=== PATIENT | female | born 2000 | race Caucasian/White ===

== ENCOUNTER → 2021-05-30 | Outpatient (CLI) | payer OTHER ==
[2021-05-30 17:43] LABS: HEMOGLOBIN A1c 4.8 %
== END ==
LOC: M PLALAB 15:45
PROVIDERS: ATTEND Obstetrics & Gynecology
DX: N93.9 Abnormal uterine and vaginal bleeding, unspecified (principal); N96 Recurrent pregnancy loss

== ENCOUNTER → 2021-06-02 | Outpatient (CLI) | payer OTHER | LOC: M PLALAB 09:25 | PROVIDERS: ATTEND Obstetrics & Gynecology | DX: N96 Recurrent pregnancy loss (principal) ==

== ENCOUNTER → 2021-07-17 | Outpatient (CLI) | payer OTHER ==
[2021-07-17 17:43] LABS: HEMATOCRIT 38.4 % (36.0-47.0); HEMOGLOBIN 13.1 g/dl (12.0-15.5); MEAN CORPUSCULAR HEMOGLOBIN 28.9 pg (27.0-33.0); MEAN CORPUSCULAR HGB CONC 34.1 g/dl (32.0-36.5); MEAN CORPUSCULAR VOLUME 84.6 fl (80.0-96.0); PLATELET COUNT, AUTOMATED 254 10^3/uL (150-450); RED BLOOD COUNT 4.54 10^6/uL (4.00-5.40); WHITE BLOOD COUNT 10.4 10^3/uL (4.0-10.0)
[2021-07-17 18:58] LABS: HEPATITIS C VIRUS ABY INDEX 0.2 INDEX (<0.8); HIV 1&2 SCREEN CENTAUR NEGATIVE (NEGATIVE)
== END ==
LOC: M PLALAB 14:23
PROVIDERS: ATTEND Obstetrics & Gynecology
DX: Z34.80 Encounter for supervision of other normal pregnancy, unspecified trimester (principal); Z36.89 Encounter for other specified antenatal screening

== ENCOUNTER → 2021-09-25 | Outpatient (CLI) | payer OTHER | LOC: M WHC 09:48 | PROVIDERS: ATTEND Obstetrics & Gynecology | DX: O32.1XX0 Maternal care for breech presentation, not applicable or unspecified (principal); Z3A.20 20 weeks gestation of pregnancy ==

== ENCOUNTER → 2021-11-10 | Outpatient (CLI) | payer OTHER | LOC: M WHC 08:56 | PROVIDERS: ATTEND Specialist | DX: Z36.2 Encounter for other antenatal screening follow-up (principal); Z3A.27 27 weeks gestation of pregnancy ==

== ENCOUNTER → 2021-11-10 | Outpatient (CLI) | payer OTHER ==
[2021-11-10 15:21] LABS: HEMATOCRIT 35.4 % (36.0-47.0); HEMOGLOBIN 11.6 g/dl (12.0-15.5); MEAN CORPUSCULAR HEMOGLOBIN 28.1 pg (27.0-33.0); MEAN CORPUSCULAR HGB CONC 32.8 g/dl (32.0-36.5); MEAN CORPUSCULAR VOLUME 85.7 fl (80.0-96.0); PLATELET COUNT, AUTOMATED 238 10^3/uL (150-450); RED BLOOD COUNT 4.13 10^6/uL (4.00-5.40); WHITE BLOOD COUNT 8.4 10^3/uL (4.0-10.0)
== END ==
LOC: M PLALAB 09:55
PROVIDERS: ATTEND Specialist
DX: Z34.82 Encounter for supervision of other normal pregnancy, second trimester (principal); Z3A.27 27 weeks gestation of pregnancy; Z36.2 Encounter for other antenatal screening follow-up

== ENCOUNTER → 2022-01-12 | Outpatient (REF) | payer OTHER ==
[~2022-01-12] MED LIST: MULTTAB20 PO
[2022-01-12 13:56] LABS: APPEARANCE, URINE MANUAL HAZY (CLEAR); BILIRUBIN, URINE MANUAL NEGATIVE (NEGATIVE); COLOR, URINE MANUAL YELLOW (YELLOW); GLUCOSE, URINE (UA) MANUAL NEGATIVE (NEGATIVE); KETONE, URINE MANUAL NEGATIVE (NEGATIVE); NITRITE, URINE MANUAL NEGATIVE (NEGATIVE); PH,URINE MAN 6.5 UNITS (5.0 - 7.0); PROTEIN, URINE MANUAL NEGATIVE (NEGATIVE); UROBILINOGEN, URINE MANUAL NORMAL (NORMAL)
[2022-01-12 13:57] LABS: BLOOD URINE MANUAL NEGATIVE (NEGATIVE); LEUKOCYTE ESTERASE, URINE MAN TRACE (NEGATIVE)
[2022-01-12 14:21] LABS: AMORPHOUS SEDIMENT, URINE MOD AMOUNT (NEGATIVE); BACTERIA, URINE NONE SEEN; HYALINE CAST, URINE NONE SEEN /lpf (0-1); MUCUS, URINE SMALL AMOUNT (NEGATIVE); RBC, URINE NONE SEEN /hpf (0-3); SQUAMOUS EPITHELIAL CELL URINE SMALL AMOUNT /hpf (SMALL AMT); WBC, URINE 0-1 /hpf (0-3)
== END ==
LOC: M PLALAB 11:39
PROVIDERS: ATTEND Obstetrics & Gynecology
DX: O23.43 Unspecified infection of urinary tract in pregnancy, third trimester (principal); Z36.89 Encounter for other specified antenatal screening; Z3A.36 36 weeks gestation of pregnancy
CPT/HCPCS: 81000; 87081; 87086; G0463

== ENCOUNTER 2022-01-14 18:15 | Outpatient (CLI) | payer OTHER ==
[~2022-01-14] VITALS: Ht 162.6 cm; Wt 111.4 kg
[2022-01-14] MEDS ORDERED: MULTTAB20 PO (18:35)
[2022-01-14 18:39] VITALS: BP 100/56
[2022-01-14] MEDS ORDERED: HOME MED LIST COMPLETE! XX SCH (18:40)
[2022-01-14] MEDS ORDERED: ONDANSETRON 4MG ORAL DISINTEGRATING TAB PO PRN (19:25)
[2022-01-14 19:46] LABS: APPEARANCE, URINE MANUAL CLEAR (CLEAR); BILIRUBIN, URINE MANUAL NEGATIVE (NEGATIVE); BLOOD URINE MANUAL NEGATIVE (NEGATIVE); COLOR, URINE MANUAL YELLOW (YELLOW); GLUCOSE, URINE (UA) MANUAL NEGATIVE (NEGATIVE); KETONE, URINE MANUAL NEGATIVE (NEGATIVE); NITRITE, URINE MANUAL NEGATIVE (NEGATIVE); PROTEIN, URINE MANUAL NEGATIVE (NEGATIVE); UROBILINOGEN, URINE MANUAL NORMAL (NORMAL)
[2022-01-14 19:47] LABS: LEUKOCYTE ESTERASE, URINE MAN NEGATIVE (NEGATIVE)
== END 2022-01-14 20:30 | disposition home or self-care (01) ==
LOC: M LDO 18:15
PROVIDERS: ATTEND Advanced Practice Midwife
DX: O26.893 Other specified pregnancy related conditions, third trimester (principal); M54.50 Low back pain, unspecified; R10.2 Pelvic and perineal pain; R11.0 Nausea; Z88.0 Allergy status to penicillin; Z3A.36 36 weeks gestation of pregnancy
CPT/HCPCS: 59025; 81002; G0463

== ENCOUNTER 2022-02-01 15:33 | Inpatient (IN) | payer OTHER ==
[~2022-02-01] VITALS: Ht 160 cm; Wt 113.4 kg
[2022-02-01] MEDS ORDERED: HOME MED LIST COMPLETE! XX SCH (16:10)
[2022-02-01 16:24] VITALS: BP 87/35
[2022-02-01 16:26] VITALS: BP 101/54
[2022-02-01 17:08] LABS: HEMATOCRIT 33.2 % (36.0-47.0); MEAN CORPUSCULAR HEMOGLOBIN 27.9 pg (27.0-33.0); MEAN CORPUSCULAR HGB CONC 33.1 g/dl (32.0-36.5); MEAN CORPUSCULAR VOLUME 84.3 fl (80.0-96.0); PLATELET COUNT, AUTOMATED 247 10^3/uL (150-450); RED BLOOD COUNT 3.94 10^6/uL (4.00-5.40); WHITE BLOOD COUNT 8.2 10^3/uL (4.0-10.0)
[2022-02-01] MEDS ORDERED: LACTATED RINGER'S 1000 ML IV PRN (17:30)
[2022-02-01] MEDS ORDERED: CARBOPROST TROMETHAMINE 250 MCG/ML AMP IM PRN (17:30)
[2022-02-01] MEDS ORDERED: METHYLERGONOVINE MALEATE 0.2 MG/ML VIAL (J2210) IM PRN (17:30)
[2022-02-01] MEDS ORDERED: miSOPROStol 50MCG 1/2 TABLET PO ONE ×2 (17:30→23:00)
[2022-02-01] MEDS ORDERED: TRANEXAMIC ACID INJection 1,000 MG in NS 100 ML IV PRN (17:30)
[2022-02-01] MEDS ORDERED: OXYTOCIN DRIP 30 UNITS in IV 1 EA IV PRN ×4 (17:30)
[2022-02-01] MEDS ORDERED: LR 1,000 ML IV SCH (17:30)
[2022-02-01 17:43] VITALS: BP 126/58
[2022-02-01 18:43] VITALS: BP 137/70
[2022-02-01 22:12] VITALS: BP 120/61
[2022-02-02] VITALS (46 sets, daily range): BP systolic 70–198; BP diastolic 50–98
[2022-02-02] MEDS ORDERED: miSOPROStol 50MCG 1/2 TABLET PO ONE ×2 (05:00→09:35)
[2022-02-02] MEDS ORDERED: ACETAMINOPHEN 500 MG TAB PO ONE (06:00)
[2022-02-02 14:43] LABS: HEMATOCRIT 34.2 % (36.0-47.0); HEMOGLOBIN 11.4 g/dl (12.0-15.5); MEAN CORPUSCULAR HEMOGLOBIN 27.7 pg (27.0-33.0); MEAN CORPUSCULAR HGB CONC 33.3 g/dl (32.0-36.5); MEAN CORPUSCULAR VOLUME 83.2 fl (80.0-96.0); PLATELET COUNT, AUTOMATED 234 10^3/uL (150-450); RED BLOOD COUNT 4.11 10^6/uL (4.00-5.40); WHITE BLOOD COUNT 8.6 10^3/uL (4.0-10.0)
[2022-02-02] MEDS ORDERED: OXYTOCIN DRIP 30 UNITS in IV 1 EA IV SCH (14:45)
[2022-02-02 15:33] LABS: ALT/SGPT 19 U/L (12-78); BILIRUBIN,TOTAL 0.3 MG/DL (0.2-1.0); CREATININE FOR GFR 0.54 MG/DL (0.55-1.30); GLOMERULAR FILTRATION RATE > 60.0 (>60); LDH LACTATE DEHYDROGENASE 147 U/L (84-246); URIC ACID 3.6 MG/DL (2.6-6.0)
[2022-02-02 16:01] LABS: TOTAL PROTEIN,RANDOM URINE 18.3 MG/DL (0.0-12.0)
[2022-02-02] MEDS ORDERED: FENTANYL/ROPIVACAINE/NACL BAG 100 ML EPIDURAL SCH (16:05)
[2022-02-02] MEDS ORDERED: EPIDURAL/PCA KEYS XX PRN ×2 (16:05→16:15)
[2022-02-02] MEDS ORDERED: diphenhydrAMINE 50MG/ML VIAL (J1200) IV PRN (16:15)
[2022-02-02] MEDS ORDERED: ONDANSETRON 4MG 2ML VIAL IV PRN (16:15)
[2022-02-02] MEDS ORDERED: LR 500 ML IV PRN (16:15)
[2022-02-02] MEDS ORDERED: NALOXONE INJ 0.4MG/1ML VIAL (J2310 PER 1MG) IV PRN (16:15)
[2022-02-02] MEDS ORDERED: ePHEDrine SULFATE 25 MG/5 ML(5MG/ML) SYRINGE IVP PRN (16:15)
[2022-02-02] MEDS: FENTANYL/ROPIVACAINE/NACL BAG 100 ML EPIDURAL SCH (16:47)
[2022-02-03] VITALS (19 sets, daily range): BP systolic 106–134; BP diastolic 47–73
[2022-02-03] MEDS: FENTANYL/ROPIVACAINE/NACL BAG 100 ML EPIDURAL SCH (00:44)
[2022-02-03] MEDS ORDERED: BICITRA 30ML SOLN UDC As Ordered ONE (07:40)
[2022-02-03] MEDS ORDERED: CHLOROPROCAINE PRES. FREE 3% 20ML VIAL As Ordered ONE (07:45)
[2022-02-03] MEDS ORDERED: LIDOCAINE 2% W/EPINEPHRINE 20ML VIAL **PRES FREE As Ordered ONE (07:52)
[2022-02-03] MEDS ORDERED: ONDANSETRON 4MG 2ML VIAL As Ordered ONE (07:54)
[2022-02-03] MEDS ORDERED: KETOROLAC 60MG 2ML VIAL As Ordered ONE (07:54)
[2022-02-03] MEDS ORDERED: ceFAZolin SOD 2 GM in IV 1 EA IV STA (07:55)
[2022-02-03] MEDS ORDERED: MIDAZOLAM INJ 2MG/2ML VIAL (J2250 PER 1MG) As Ordered ONE (07:55)
[2022-02-03] MEDS ORDERED: fentaNYL 100 MCG/2 ML INJECTION As Ordered ONE (07:56)
[2022-02-03] MEDS ORDERED: OXYTOCIN 30 UNITS IN 0.9% NaCl 500ML IV BAG (J2590) As Ordered ONE ×3 (07:58→09:16)
[2022-02-03] MEDS ORDERED: PHENYLephrine 500MCG 5ML (100MCG/ML) SYRINGE As Ordered ONE (07:58)
[2022-02-03] MEDS ORDERED: MORPHINE PRES-FREE INJ 10 MG/10 ML VIAL As Ordered ONE (07:59)
[2022-02-03] MEDS ORDERED: ceFAZolin SOD 2 GM in IV 1 EA IV ONE (08:05)
[2022-02-03] MEDS ORDERED: BICITRA 30ML SOLN UDC PO ONE (08:05)
[2022-02-03] MEDS ORDERED: ceFAZolin 2 GM/D5W 50 ML IV BAG (J0690 PER 500MG) As Ordered ONE (08:06)
[2022-02-03 08:09] LABS: CORD GAS ABE V -8.5; CORD GAS HCO3 V 20.3 MEQ/L; CORD GAS O2 SAT V 36.8 %; CORD GAS PCO2 V 54.7 mmHg; CORD GAS PH V 7.188 UNITS; CORD GAS PO2 V 19.4 mmHg; CORD GAS SBC V 16.4 MEQ/L
[2022-02-03 08:12] LABS: CORD GAS HCO3 A 22.1 MEQ/L; CORD GAS O2 SAT A 36.3 %; CORD GAS PCO2 A 71.5 mmHg; CORD GAS PH A 7.108 UNITS; CORD GAS PO2 A 21.6 mmHg; CORD GAS SBC A 16.1 MEQ/L; CORD GAS TCO2 A 24.3 MEQ/L
[2022-02-03] MEDS ORDERED: **NOTE PATIENT COMMENT** MISC XX SCH (08:20)
[2022-02-03] MEDS ORDERED: fentaNYL 100 MCG/2 ML INJECTION IV PRN (08:20)
[2022-02-03] MEDS ORDERED: ONDANSETRON 4MG 2ML VIAL IV PRN ×2 (08:20→09:05)
[2022-02-03] MEDS: SLF 3 ML SYR IV SCH ×2 (08:20→16:18)
[2022-02-03] MEDS ORDERED: HYDROMORPHONE HCL 0.5 MG/ 0.5 ML SYRINGE (J1170 PER 1) IV PRN (08:20)
[2022-02-03] MEDS ORDERED: oxyCODONE 5MG TAB PO PRN (08:20)
[2022-02-03] MEDS ORDERED: diphenhydrAMINE 50MG/ML VIAL (J1200) IV PRN (08:20)
[2022-02-03] MEDS ORDERED: NALOXONE INJ 0.4MG/1ML VIAL (J2310 PER 1MG) IV PRN ×2 (08:20)
[2022-02-03] MEDS ORDERED: METOCLOPRAMIDE INJ 10MG/2ML VIAL (J2765 PER 1) IV PRN (08:20)
[2022-02-03] MEDS ORDERED: MEPERIDINE INJ 25 MG/ML VIAL (J2175) IV PRN (08:20)
[2022-02-03] MEDS: PRENATAL VITAMINS CHEWABLE TABLET PO SCH (09:00)
[2022-02-03] MEDS ORDERED: PERCOCET 5MG/325MG TAB PO PRN (09:05)
[2022-02-03] MEDS: LR 1,000 ML IV SCH ×2 (09:05→16:18)
[2022-02-03] MEDS ORDERED: OXYTOCIN DRIP 30 UNITS in IV 1 EA IV SCH (09:05)
[2022-02-03] MEDS ORDERED: SIMETHICONE 80MG CHEW TAB PO PRN (09:05)
[2022-02-03] MEDS ORDERED: METHYLERGONOVINE MALEATE 0.2 MG TAB PO PRN (09:05)
[2022-02-03] MEDS ORDERED: MOM 30ML SUSPENSION UDC PO PRN (09:05)
[2022-02-03] MEDS ORDERED: RHOGAM 300 MCG (1500 IU) INJ (J2790) IM SCH (09:05)
[2022-02-03] MEDS ORDERED: oxyCODONE 5MG TAB As Ordered ONE (09:24)
[2022-02-03] MEDS: KETOROLAC 30 MG/ML 1ML VIAL IV SCH ×2 (14:02→20:40)
[2022-02-03] MEDS: ceFAZolin SOD 2 GM in IV 1 EA IV SCH (16:17)
[2022-02-03] MEDS: DOCUSATE SODIUM 100MG CAPSULE PO SCH (20:40)
[2022-02-04] MEDS: LR 1,000 ML IV SCH (01:14)
[2022-02-04] MEDS: KETOROLAC 30 MG/ML 1ML VIAL IV SCH (01:14)
[2022-02-04] MEDS: ceFAZolin SOD 2 GM in IV 1 EA IV SCH ×2 (01:14→08:16)
[2022-02-04] MEDS: SLF 3 ML SYR IV SCH (01:14)
[2022-02-04 02:00] VITALS: BP 123/61
[2022-02-04 06:00] VITALS: BP 115/57
[2022-02-04 07:19] LABS: HEMATOCRIT 25.4 % (36.0-47.0); MEAN CORPUSCULAR HEMOGLOBIN 27.9 pg (27.0-33.0); MEAN CORPUSCULAR HGB CONC 32.3 g/dl (32.0-36.5); MEAN CORPUSCULAR VOLUME 86.4 fl (80.0-96.0); PLATELET COUNT, AUTOMATED 166 10^3/uL (150-450); RED BLOOD COUNT 2.94 10^6/uL (4.00-5.40); WHITE BLOOD COUNT 9.9 10^3/uL (4.0-10.0)
[2022-02-04 07:27] LABS: HEMOGLOBIN 8.2 g/dl (12.0-15.5)
[2022-02-04] MEDS: PRENATAL VITAMINS CHEWABLE TABLET PO SCH (08:16)
[2022-02-04] MEDS: PERCOCET 5MG/325MG TAB PO PRN ×3 (08:16→19:24)
[2022-02-04] MEDS: DOCUSATE SODIUM 100MG CAPSULE PO SCH ×2 (08:16→21:00)
[2022-02-04] MEDS: IBUPROFEN 800 MG TAB PO SCH ×2 (09:23→18:38)
[2022-02-04 09:33] VITALS: BP 109/57
[2022-02-04 14:06] VITALS: BP 104/52
[2022-02-04 17:47] VITALS: BP 117/59
[2022-02-04 22:00] VITALS: BP 114/58
[2022-02-05 02:00] VITALS: BP 97/51
[2022-02-05] MEDS: IBUPROFEN 800 MG TAB PO SCH ×2 (02:04→10:51)
[2022-02-05 06:00] VITALS: BP 113/57
[2022-02-05] MEDS: DOCUSATE SODIUM 100MG CAPSULE PO SCH (08:51)
[2022-02-05] MEDS: PRENATAL VITAMINS CHEWABLE TABLET PO SCH (08:51)
[2022-02-05] MEDS ORDERED: MEASLES,MUMPS,RUBELLA VACCINE INJ (MMR-II) (90707) SC.IMMUN ONE (09:00)
[2022-02-05] MEDS ORDERED: COLA100C5 PO (09:56)
[2022-02-05] MEDS ORDERED: PERCOCET PO (09:56)
[2022-02-05] MEDS ORDERED: IBUP80TA PO (09:56)
== END 2022-02-05 10:57 | disposition home or self-care (01) | DRG 773 ==
LOC: M LDI 15:33 → M OBS 02-03 10:28
PROVIDERS: ADMIT Obstetrics & Gynecology; ATTEND Obstetrics & Gynecology
PROC: 3E0P7GC Introduction of Other Therapeutic Substance into Female Reproductive, Via Natural or Artificial Opening (ICD-10-PCS; 2022-02-01)
PROC: 10907ZC Drainage of Amniotic Fluid, Therapeutic from Products of Conception, Via Natural or Artificial Opening (ICD-10-PCS; 2022-02-03)
PROC: 10D00Z1 Extraction of Products of Conception, Low, Open Approach (ICD-10-PCS; principal; 2022-02-03 07:48)
DX: O69.0XX0 Labor and delivery complicated by prolapse of cord, not applicable or unspecified (principal); Z88.0 Allergy status to penicillin; Z3A.39 39 weeks gestation of pregnancy; O76 Abnormality in fetal heart rate and rhythm complicating labor and delivery; Z37.0 Single live birth

== ENCOUNTER → 2022-05-07 | Outpatient (CLI) | payer OTHER ==
[~2022-05-07] MED LIST changes: +COLA100C5 PO; +IBUP80TA PO; +PERCOCET PO
== END ==
LOC: M LABSMTC 09:23
PROVIDERS: ATTEND Anesthesiology
DX: Z01.812 Encounter for preprocedural laboratory examination (principal)

== ENCOUNTER 2022-05-12 06:56 | Day surgery (SDC) | payer OTHER ==
[~2022-05-12] VITALS: Ht 160 cm; Wt 107.7 kg
[2022-05-12] MEDS ORDERED: LR 1,000 ML IV SCH ×2 (07:10→10:05)
[2022-05-12 07:50] LABS: HEMATOCRIT 38.5 % (36.0-47.0); HEMOGLOBIN 12.8 g/dl (12.0-15.5); MEAN CORPUSCULAR HEMOGLOBIN 25.7 pg (27.0-33.0); MEAN CORPUSCULAR HGB CONC 33.2 g/dl (32.0-36.5); MEAN CORPUSCULAR VOLUME 77.2 fl (80.0-96.0); PLATELET COUNT, AUTOMATED 323 10^3/uL (150-450); RED BLOOD COUNT 4.99 10^6/uL (4.00-5.40); WHITE BLOOD COUNT 11.6 10^3/uL (4.0-10.0)
[2022-05-12] MEDS ORDERED: propofoL 200 MG/20 ML VIAL As Ordered ONE (08:41)
[2022-05-12] MEDS ORDERED: LIDOCAINE 2% 100MG/5ML SDV (FOR ANES.) As Ordered ONE (08:41)
[2022-05-12] MEDS ORDERED: ROCURONIUM BROMIDE 50MG/5ML VIAL As Ordered ONE ×2 (08:41→09:24)
[2022-05-12] MEDS ORDERED: MIDAZOLAM INJ 2MG/2ML VIAL As Ordered ONE (08:42)
[2022-05-12] MEDS ORDERED: fentaNYL 100 MCG/2 ML INJECTION As Ordered ONE (08:42)
[2022-05-12] MEDS ORDERED: BUPIVACAINE HCL 0.25% 30ML VIAL As Ordered ONE (08:47)
[2022-05-12] MEDS ORDERED: ACETAMINOPHEN 1000MG 100ML IV BAG As Ordered ONE (09:19)
[2022-05-12] MEDS ORDERED: HYDROmorphone HCL 2MG/ML 1ML VIAL As Ordered ONE (09:32)
[2022-05-12] MEDS ORDERED: KETOROLAC 60MG 2ML VIAL As Ordered ONE (09:32)
[2022-05-12] MEDS ORDERED: METOCLOPRAMIDE INJ 10MG/2ML VIAL As Ordered ONE (09:32)
[2022-05-12] MEDS ORDERED: SUGAMMADEX SODIUM 500 MG/5 ML VIAL (BRIDION) As Ordered ONE (09:32)
[2022-05-12] MEDS ORDERED: ONDANSETRON 4MG 2ML VIAL As Ordered ONE (09:32)
[2022-05-12] MEDS ORDERED: HYDROMORPHONE HCL 0.5 MG/ 0.5 ML SYRINGE IV PRN (10:05)
[2022-05-12] MEDS ORDERED: fentaNYL 100 MCG/2 ML INJECTION IV PRN (10:05)
[2022-05-12] MEDS ORDERED: oxyCODONE 5MG TAB PO PRN (10:05)
[2022-05-12] MEDS ORDERED: ONDANSETRON 4MG 2ML VIAL IV PRN (10:05)
[2022-05-12] MEDS ORDERED: IBUP80TA PO (10:36)
[2022-05-12] MEDS ORDERED: PERC5TAB12 PO (10:38)
[2022-05-12] MEDS ORDERED: PERCOCET 5MG/325MG TAB PO PRN (10:50)
[2022-05-12 13:20] VITALS: BP 130/79
[2022-05-12] MEDS ORDERED: KETOROLAC 30 MG/ML 1ML VIAL IV SCH (16:00)
== END 2022-05-12 13:22 | disposition home or self-care (01) ==
LOC: M SDC 06:56
PROVIDERS: ATTEND Obstetrics & Gynecology
DX: Z30.2 Encounter for sterilization (principal); Z88.0 Allergy status to penicillin
CPT/HCPCS: 36415; 58661; 81025; 85027; 86850; 86900; 86901; 88302; J1100; J2405